=== PATIENT | male | born 1985 ===

== ENCOUNTER 2016-11-17 15:06 | Emergency (ER) | payer MEDICAID, OTHER ==
[2016-11-17 15:55] VITALS: BP 108/61; RESP 18; TEMP 98.3; O2SAT 100
[2016-11-17] MEDS ORDERED: Sodium Chloride 0.9% 1,000 ML IV STA (15:59)
[2016-11-17] MEDS ORDERED: Alum-Mag Hydrox-Simethicone Susp (30 mL) PO ONE (15:59)
--- NOTE | 2016-11-17 16:04 | ED PDOC ---
HPI: Abdomen Time Seen by Provider: 11/17/16 15:35 Chief Complaint (Nursing): Abdominal Pain Chief Complaint (Provider): Abdominal Pain History Per: Patient History/Exam Limitations: no limitations Onset/Duration Of Symptoms: Hrs Current Symptoms Are (Timing): Still Present Severity: Mild Location Of Pain/Discomfort: Epigastric Quality Of Discomfort: Burning Associated Symptoms: denies: Fever, Nausea, Loss Of Appetite Exacerbating Factors: denies: None Alleviating Factors: denies: None Last Bowel Movement: Today Additional Complaint(s): Patient is a 31 year old male who presents to ED for evaluation of epigastric pain that radiates to his chest that began upon waking this morning. Patient states similar pain in the past but normal radiates to the RUQ. Denies nausea, vomiting, back pain, diarrhea, postprandial pain or fever. Normal BM today and no medication for symptoms Past Medical History Reviewed: Historical Data, Nursing Documentation, Vital Signs Vital Signs: Last Vital Signs Temp 98.3 F 11/17/16 15:52 Pulse 64 11/17/16 15:52 Resp 18 11/17/16 15:52 BP 108/61 11/17/16 15:52 Pulse Ox 100 11/17/16 16:09 - Medical History PMH: Anxiety, Depression, Gall Bladder Disease Denies: Chronic Kidney Disease - Surgical History Surgical History: No Surg Hx - Family History Family History: States: Unknown Family Hx - Immunization History Hx Tetanus Toxoid Vaccination: No Hx Influenza Vaccination: No Hx Pneumococcal Vaccination: No - Home Medications Home Medications: Ambulatory Orders Medication Instructions Recorded Cyclobenzaprine [Flexeril] 5 mg PO Q8 PRN #15 tab 09/25/16 Dicyclomine [Bentyl] 20 mg PO BID PRN #30 tab 09/25/16 Aluminum Hydroxide/Magnesium 30 ml PO TID PRN #250 udc 10/13/16 [Maalox Plus 30 ml] Ibuprofen [Motrin] 1 tab PO TID PRN #30 tab 10/13/16 Ranitidine HCl [Zantac] 150 mg PO DAILY PRN #30 tablet 11/17/16 - Allergies Allergies/Adverse Reactions: Allergies Allergy/AdvReac Type Severity Reaction Status Date / Time No Known Allergies Allergy Verified 10/13/16 11:15 Review of Systems ROS Statement: Except As Marked, All Systems Reviewed And Found Negative Constitutional: Negative for: Fever Gastrointestinal: Positive for: Abdominal Pain. Negative for: Nausea, Vomiting Genitourinary Male: Negative for: Dysuria, Hematuria Musculoskeletal: Negative for: Back Pain Physical Exam - Reviewed Nursing Documentation Reviewed: Yes Vital Signs Reviewed: Yes - Physical Exam Appears: Positive for: Non-toxic, No Acute Distress Skin: Positive for: Normal Color, Warm Eye Exam: Positive for: Normal appearance Neck: Positive for: Normal, Painless ROM Cardiovascular/Chest: Positive for: Regular Rate, Rhythm, Chest Non Tender. Negative for: Murmur Respiratory: Positive for: Normal Breath Sounds. Negative for: Respiratory Distress Gastrointestinal/Abdominal: Positive for: Soft, Tenderness (epigastric and RUQ ( -) murphys). Negative for: Distended, Guarding, Rebound Back: Positive for: Normal Inspection. Negative for: L CVA Tenderness, R CVA Tenderness Extremity: Positive for: Normal ROM Neurologic/Psych: Positive for: Alert, Oriented - Laboratory Results Result Diagrams: 11/17/16 16:10 11/17/16 16:10 - ECG ECG: Positive for: Interpreted By Me ECG Rhythm: Positive for: Sinus Bradycardia. Negative for: ST/T Changes Rate: 53 O2 Sat by Pulse Oximetry: 100 (RA) Pulse Ox Interpretation: Normal - Radiology X-Ray: Interpreted by Me (CXR) X-Ray Interpretation: No Acute Disease - CT Scan/US Abd US Other Rad Studies (CT/US): Radiology Report Reviewed (negative) - Progress Re-evaluation Time: 18:54 (Abd remains soft and non-tender. Denies chest pain, SOB.) Condition: Re-examined, Improving,but remains with symptoms Medical Decision Making Medical Decision Making: Time: 1555 Initial Impression: Abdominal pain Initial Plan: -- CMP -- UDS -- Lipase -- CBC -- CXR -- NSF, Pepcid and Maalox -- U/A -- U/S Scribe Attestation: Documented by Bev Roberto, acting as a scribe for Chandrakant Causey PA-C. Provider Scribe Attestation: All medical record entries made by the Scribe were at my direction and personally dictated by me. I have reviewed the chart and agree that the record accurately reflects my personal performance of the history, physical exam, medical decision making, and the department course for this patient. I have also personally directed, reviewed, and agree with the discharge instructions and disposition. Disposition - Clinical Impression Clinical Impression: Dyspepsia - Patient ED Disposition Is Patient to be Admitted: No - Disposition Disposition: Routine/Home Disposition Time: 18:54 Condition: STABLE Prescriptions: Ranitidine HCl [Zantac] 150 mg PO DAILY PRN #30 tablet PRN Reason: Abdominal Pain Instructions: Gastritis (ED)
[2016-11-17] MEDS ORDERED: Alum-Mag Hydrox-Simethicone Susp (30 mL) ONE (16:11)
[2016-11-17 17:05] LABS: BASO % 0.5 % (0.0-2.0); EOS # 0.2 K/uL (0.0-0.7); LYMPH # 2.4 K/uL (1.0-4.3); LYMPH % 35.4 % (20.0-40.0); MEAN CELL VOLUME 79.1 fl (80.0-94.0); MEAN CORPUSCULAR HEMOGLOBIN 25.7 pg (27.0-31.0); MEAN CORPUSCULAR HGB CONC 32.5 g/dL (33.0-37.0); MEAN PLATELET VOLUME 7.6 fl (7.2-11.7); MONO # 0.3 K/uL (0.0-0.8); MONO % 4.9 % (0.0-10.0); NEUT # 3.8 K/uL (1.8-7.0); NEUT % 56.2 % (50.0-75.0); NRBC % 0.2 % (0.0-0.0); RED CELL DISTRIBUTION WIDTH 13.6 % (11.5-14.5); WHITE BLOOD COUNT 6.8 K/uL (4.8-10.8)
[2016-11-17 17:06] LABS: RBC URINE < 1 /hpf (0-3); URINE BILIRUBIN NEGATIVE (NEGATIVE); URINE BLOOD NEGATIVE (NEGATIVE); URINE COLOR YELLOW (YELLOW); URINE GLUCOSE (UA) NEG (Normal); URINE KETONE NEGATIVE (NEGATIVE); URINE LEUKOCYTE ESTERASE NEG Leu/uL (Negative); URINE PROTEIN NEGATIVE (NEGATIVE); URINE UROBILINOGEN 0.2-1.0 mg/dL (0.2-1.0); WBC URINE < 1 /hpf (0-5)
[2016-11-17 17:11] LABS: ALB/GLOB RATIO 1.3 (1.0-2.1); ALKALINE PHOSPHATASE 56 U/L (38-126); ALT/SGPT 29 U/L (21-72); AST/SGOT 24 U/L (17-59); BILIRUBIN,TOTAL 0.5 mg/dl (0.2-1.3); BLOOD UREA NITROGEN 8 mg/dl (9-20); CALCIUM 9.1 mg/dL (8.4-10.2); CARBON DIOXIDE 28 mmol/L (22-30); CHLORIDE 100 mmol/L (98-107); GFR AFRICAN-AMERICAN > 60; GLUCOSE,RANDOM 113 mg/dL (75-110); LIPASE 46 U/L (23-300); POTASSIUM 3.7 MMOL/L (3.6-5.0); SODIUM 137 mmol/l (132-148); TOTAL PROTEIN 7.5 G/DL (6.3-8.2)
--- NOTE | 2016-11-17 17:36 | RAD ---
HISTORY: abdominal pain COMPARISON: None available. TECHNIQUE: Chest PA and lateral FINDINGS: LUNGS: No focal consolidation. Please note that chest x-ray has limited sensitivity for the detection of pulmonary masses. PLEURA: No significant pleural effusion identified. No definite pneumothorax . CARDIOVASCULAR: The cardiomediastinal silhouette appears within normal limits of size. OSSEOUS STRUCTURES: No acute osseous abnormality identified. VISUALIZED UPPER ABDOMEN: Unremarkable. OTHER FINDINGS: None. IMPRESSION: No focal consolidation, significant pleural effusion, or definite pneumothorax identified.
[2016-11-17 18:55] VITALS: PULSE 53
--- NOTE | 2016-11-17 20:03 | US ---
EXAM: US Abdomen Complete. CLINICAL HISTORY: 31 years old, male; Pain; Abdominal pain; Generalized TECHNIQUE: Real-time ultrasound of the abdomen (complete) with image documentation. EXAM DATE/TIME: 11/17/2016 3:58 PM COMPARISON: No relevant prior studies available. FINDINGS: Gallbladder: Within normal limits in appearance, without evidence of gallstones, significant gallbladder wall thickening, or pericholecystic fluid. Reportedly negative sonographic Grimes's sign. Common bile duct: Does not appear abnormally dilated, measuring less than 6 mm in diameter. Liver: Within normal limits in appearance. Measures 16 cm in length. Normal flow seen in the main portal vein on color and Doppler imaging. Pancreas: Visualized portions appear unremarkable. Right kidney: Within normal limits in appearance. Measures 9.8 cm in length. No evidence of hydronephrosis. Left kidney: Within normal limits in appearance. Measures 10.9 cm in length. No evidence of hydronephrosis. Spleen: Within normal limits in appearance. Measures 9.5 cm in length. Aorta: Visualized portions appear unremarkable. IVC: Visualized portions appear unremarkable. IMPRESSION: No significant abnormality identified. No evidence of gallstones or cholecystitis.
== END 2016-11-17 19:02 | disposition home or self-care (01) ==
LOC: H.ER 15:06
DX: R10.13 Epigastric pain (principal)

== ENCOUNTER 2016-12-12 15:59 | Emergency (ER) | payer OTHER ==
[2016-12-12 16:15] VITALS: BP 110/59; PULSE 78; RESP 18; TEMP 98.5; O2SAT 97
[2016-12-12] MEDS ORDERED: Sodium Chloride 0.9% 1,000 ML IV STA (17:02)
--- NOTE | 2016-12-12 17:03 | ED PDOC ---
HPI: Abdomen Time Seen by Provider: 12/12/16 16:22 Chief Complaint (Nursing): Abdominal Pain Chief Complaint (Provider): Headache/ Abdominal pain History Per: Patient Additional Complaint(s): Patient present for evaluation of several weeks of right sided headache and "twitching" of his eye muscles. he has had these symptoms for many years >5, was seen by neurology and had work up done including MRI. further his last apt with neurologist was about 1 year ago for same. (-) change in vision, motor weakness, memory problems. he does not take anything for the headaches. further notes chronic abdominal pain, being evaluated by his doctor, seen in the ED for chronic abdominal pain, notes no change to the chronic abdominal pain , nausea or fluctuating bowel habits. Pt appears very anxious Past Medical History Reviewed: Nursing Documentation, Vital Signs Vital Signs: Last Vital Signs Temp 98.5 F 12/12/16 16:09 Pulse 78 12/12/16 16:09 Resp 18 12/12/16 16:09 BP 110/59 L 12/12/16 16:09 Pulse Ox 97 12/12/16 18:45 - Medical History PMH: Anxiety, Depression, Gall Bladder Disease Denies: Chronic Kidney Disease - Family History Family History: States: Unknown Family Hx - Living Arrangements Living Arrangements: With Family - Social History Current smoker - smoking cessation education provided: No Alcohol: None Drugs: Denies - Immunization History Hx Tetanus Toxoid Vaccination: No Hx Influenza Vaccination: No Hx Pneumococcal Vaccination: No - Home Medications Home Medications: Ambulatory Orders Medication Instructions Recorded Cyclobenzaprine [Flexeril] 5 mg PO Q8 PRN #15 tab 09/25/16 Dicyclomine [Bentyl] 20 mg PO BID PRN #30 tab 09/25/16 Aluminum Hydroxide/Magnesium 30 ml PO TID PRN #250 udc 10/13/16 [Maalox Plus 30 ml] Ibuprofen [Motrin] 1 tab PO TID PRN #30 tab 10/13/16 Ranitidine HCl [Zantac] 150 mg PO DAILY PRN #30 tablet 11/17/16 Methylprednisolone [Medrol Dose 4 mg PO DAILY #21 mg 12/12/16 Pack (21 tabs)] - Allergies Allergies/Adverse Reactions: Allergies Allergy/AdvReac Type Severity Reaction Status Date / Time No Known Allergies Allergy Verified 10/13/16 11:15 Review of Systems ROS Statement: Except As Marked, All Systems Reviewed And Found Negative Physical Exam - Reviewed Nursing Documentation Reviewed: Yes Vital Signs Reviewed: Yes - Physical Exam Appears: Positive for: Well, Non-toxic, No Acute Distress Head Exam: Positive for: ATRAUMATIC, NORMAL INSPECTION, NORMOCEPHALIC Skin: Positive for: Normal Color, Warm, DRY Eye Exam: Positive for: EOMI, Normal appearance, PERRL ENT: Positive for: Normal ENT Inspection Neck: Positive for: Normal, Painless ROM Cardiovascular/Chest: Positive for: Regular Rate, Rhythm Respiratory: Positive for: CNT, Normal Breath Sounds Gastrointestinal/Abdominal: Positive for: Normal Exam, Bowel Sounds, Soft Back: Positive for: Normal Inspection Extremity: Positive for: Normal ROM Neurologic/Psych: Positive for: Alert, Oriented - Laboratory Results Result Diagrams: 12/12/16 17:25 12/12/16 17:25 - ECG O2 Sat by Pulse Oximetry: 97 Medical Decision Making Medical Decision Making: Labs resulted and reviewed with Pt who reports feeling well on re-eval Stable for discharge at this time. advised to follow up with PMD, return to ED with any concerns Disposition - Clinical Impression Clinical Impression: Chronic headache disorder, Abdominal discomfort - Patient ED Disposition Is Patient to be Admitted: No - Disposition Disposition: Routine/Home Disposition Time: 18:45 Condition: STABLE Prescriptions: Methylprednisolone [Medrol Dose Pack (21 tabs)] 4 mg PO DAILY #21 mg Instructions: Migraine Headache (ED), Gas and Bloating (ED) Forms: [facility] ED School/Work Excuse - POA Present On Arrival: None
[2016-12-12 17:31] LABS: RBC URINE 2 /hpf (0-3); URINE BILIRUBIN NEGATIVE (NEGATIVE); URINE BLOOD NEGATIVE (NEGATIVE); URINE COLOR STRAW (YELLOW); URINE GLUCOSE (UA) NEG (Normal); URINE KETONE NEGATIVE (NEGATIVE); URINE LEUKOCYTE ESTERASE NEG Leu/uL (Negative); URINE PROTEIN NEGATIVE (NEGATIVE); URINE UROBILINOGEN 0.2-1.0 mg/dL (0.2-1.0); WBC URINE < 1 /hpf (0-5)
[2016-12-12 17:33] LABS: EOS # 0.1 K/uL (0.0-0.7); EOS % 1.9 % (0.0-4.0); LYMPH # 1.5 K/uL (1.0-4.3); MEAN CELL VOLUME 78.6 fl (80.0-94.0); MEAN CORPUSCULAR HEMOGLOBIN 25.8 pg (27.0-31.0); MEAN CORPUSCULAR HGB CONC 32.8 g/dL (33.0-37.0); MEAN PLATELET VOLUME 7.4 fl (7.2-11.7); MONO # 0.7 K/uL (0.0-0.8); MONO % 14.8 % (0.0-10.0); NEUT # 2.3 K/uL (1.8-7.0); NEUT % 50.3 % (50.0-75.0); NRBC % 0.2 % (0.0-0.0); RED CELL DISTRIBUTION WIDTH 13.8 % (11.5-14.5); WHITE BLOOD COUNT 4.7 K/uL (4.8-10.8)
[2016-12-12 17:46] LABS: ALB/GLOB RATIO 1.3 (1.0-2.1); ALKALINE PHOSPHATASE 60 U/L (38-126); ALT/SGPT 33 U/L (21-72); AMYLASE 76 U/L (30-110); AST/SGOT 24 U/L (17-59); BILIRUBIN,TOTAL 0.4 mg/dl (0.2-1.3); BLOOD UREA NITROGEN 9 mg/dl (9-20); CALCIUM 9.4 mg/dL (8.4-10.2); CARBON DIOXIDE 29 mmol/L (22-30); CHLORIDE 101 mmol/L (98-107); GFR AFRICAN-AMERICAN > 60; GLUCOSE,RANDOM 91 mg/dL (75-110); LIPASE 54 U/L (23-300); POTASSIUM 4.6 MMOL/L (3.6-5.0); SODIUM 143 mmol/l (132-148); TOTAL PROTEIN 7.7 G/DL (6.3-8.2)
== END 2016-12-12 19:04 | disposition home or self-care (01) ==
LOC: H.ER 15:59
DX: R51 Headache (principal); F41.9 Anxiety disorder, unspecified; G89.29 Other chronic pain

== ENCOUNTER 2017-01-20 13:45 | Emergency (ER) | payer MEDICAID, OTHER ==
[2017-01-20 13:53] VITALS: BP 103/57; PULSE 61; RESP 19; TEMP 97; O2SAT 100
--- NOTE | 2017-01-20 14:11 | ED PDOC ---
HPI: General Adult Time Seen by Provider: 01/20/17 13:51 Chief Complaint (Nursing): Headache Chief Complaint (Provider): Left facial twitching and left neck pain over a month History Per: Patient History/Exam Limitations: no limitations Onset/Duration Of Symptoms: Days Have you had recent travel within the past 21 days to any of the following countries: [place], [place], [place] or [place]?: No Current Symptoms Are (Timing): Still Present Severity: Moderate Additional Complaint(s): Pt states he has has intermittent left facial twitching for over a month. Pt states she has seen Dr. Rodriguez for this. PT states he has been also seeing a neurologist for the same for aprox 6 months. Pt states he specifically came today for left sided neck pain, which he described and sharp with sensation of liquid dripping on skin. Pt states he has gotten it before and neurologist also aware. Normal head CT on 10/18/16. Pt was seen for same in ER on 12/12/16 and told provider at that time it was gong on for >5 years and he has been seeing his current neurologist for the last year. Pt seen in [facility] [id number] for the same and at that time he told provider it was going on for 4-5 months. Past Medical History Vital Signs: Last Vital Signs Temp 97.0 F L 01/20/17 13:51 Pulse 61 01/20/17 13:51 Resp 19 01/20/17 13:51 BP 103/57 L 01/20/17 13:51 Pulse Ox 100 01/20/17 14:17 - Medical History PMH: Anxiety, Depression, Gall Bladder Disease Denies: Chronic Kidney Disease - Family History Family History: Denies: [place] - Immunization History Hx Tetanus Toxoid Vaccination: No Hx Influenza Vaccination: No Hx Pneumococcal Vaccination: No - Home Medications Home Medications: Ambulatory Orders Medication Instructions Recorded Famotidine [Pepcid] 20 mg PO BID #30 tab 01/06/17 Naproxen [Naprosyn] 1 tab PO BID PRN #20 tab 01/06/17 - Allergies Allergies/Adverse Reactions: Allergies Allergy/AdvReac Type Severity Reaction Status Date / Time DUST Allergy Uncoded 01/06/17 13:58 SEASONAL Allergy Uncoded 01/06/17 13:58 - ECG O2 Sat by Pulse Oximetry: 100 Medical Decision Making Medical Decision Making: Discussed continued follow-up with neurologist for chronic symptoms. Pt than becomes tearful and asks to speak with a psychiatrist. Pt states not knowing what is wrong is making his depressed. Pt states he is on the boarder of wanting to hurt himself. Crisis evaluation completed. Disposition - Clinical Impression Clinical Impression: Headache, Paresthesia - Patient ED Disposition Is Patient to be Admitted: No Counseled Patient/Family Regarding: Diagnosis, Need For Followup - Disposition Referrals: [facility] [Outside] Disposition: Routine/Home Disposition Time: 15:42 Condition: GOOD Instructions: Paresthesia (ED)
== END 2017-01-20 17:00 | disposition home or self-care (01) ==
LOC: H.ER 13:45
DX: R20.9 Unspecified disturbances of skin sensation (principal); R51 Headache; F41.9 Anxiety disorder, unspecified; F32.9 Major depressive disorder, single episode, unspecified

== ENCOUNTER 2017-04-06 13:25 | Emergency (ER) | payer OTHER ==
[2017-04-06 13:32] VITALS: BP 104/82; PULSE 73; RESP 16; TEMP 97; O2SAT 97
--- NOTE | 2017-04-06 13:43 | ED PDOC ---
HPI: Headache Time Seen by Provider: 04/06/17 13:34 Chief Complaint (Nursing): Headache Chief Complaint (Provider): Headaches History Per: Patient History/Exam Limitations: no limitations Onset/Duration Of Symptoms: Intermittent Episodes Current Symptoms Are (Timing): Still Present Severity: Moderate Quality: "Pain" Additional Complaint(s): Lasha Sarabia is a 32 y/o male presenting to the ER on 04/06/2017 with complaints of intermittent headaches and "muscle twitching to scalp" that has been ongoing for months. Patient has been evaluated in this ED for similar complaints in the past. He reports he sees a neurologist, Dr. Horan, who sent him for an MRI 2 weeks ago. Patient states he follows up with Dr. Horan in May but he came to ED today as he is having an episode of scalp twitching. He additionally says he was prescribed Cymbalta by his neurologist, but was advised not to take it by his primary doctor. Patient takes Advil for his headaches with no relief. Patient was recently diagnosed with a TMJ and was told this is contributing to his headaches as well. Patient denies any dizziness, vision changes, nausea or vomiting or fever or chills upon arrival today. He complains more so of muscle spasm to scalp at present vs. actual pain. No associated facial numbness or extremity weakness. Past Medical History Reviewed: Historical Data, Nursing Documentation, Vital Signs Vital Signs: Last Vital Signs Temp 97.0 F L 04/06/17 13:28 Pulse 73 04/06/17 13:28 Resp 16 04/06/17 13:28 BP 104/82 04/06/17 13:28 Pulse Ox 97 04/06/17 13:28 - Medical History PMH: Anxiety, Depression, Chronic Pain (chronic headaches) - Surgical History Surgical History: No Surg Hx - Family History Family History: States: No Known Family Hx - Living Arrangements Living Arrangements: With Family - Social History Current smoker - smoking cessation education provided: No Alcohol: Occasional Drugs: Denies - Home Medications Home Medications: Ambulatory Orders Medication Instructions Recorded Famotidine [Pepcid] 20 mg PO BID #30 tab 01/06/17 Naproxen [Naprosyn] 1 tab PO BID PRN #20 tab 01/06/17 Cyclobenzaprine [Cyclobenzaprine 10 mg PO TID PRN #20 tab 04/06/17 HCl] - Allergies Allergies/Adverse Reactions: Allergies Allergy/AdvReac Type Severity Reaction Status Date / Time DUST Allergy Uncoded 01/06/17 13:58 SEASONAL Allergy Uncoded 01/06/17 13:58 Review of Systems ROS Statement: Except As Marked, All Systems Reviewed And Found Negative Constitutional: Negative for: Fever, Chills, Weakness Gastrointestinal: Negative for: Nausea, Vomiting Neurological: Positive for: Headache (with muscle twitching to scalp). Negative for: Weakness, Numbness, Dizziness Physical Exam - Reviewed Nursing Documentation Reviewed: Yes Vital Signs Reviewed: Yes - Physical Exam Appears: Positive for: Well, Non-toxic, No Acute Distress Head Exam: Positive for: ATRAUMATIC, NORMAL INSPECTION, NORMOCEPHALIC Skin: Positive for: Normal Color. Negative for: Rash Eye Exam: Positive for: Normal appearance, EOMI, PERRL ENT: Positive for: Normal ENT Inspection Neck: Positive for: Normal, Painless ROM, Supple. Negative for: Pain On Movement Of Neck Cardiovascular/Chest: Positive for: Regular Rate, Rhythm Respiratory: Positive for: Normal Breath Sounds Extremity: Positive for: Normal ROM. Negative for: Deformity, Swelling Neurologic/Psych: Positive for: Alert, weatherization administrator II-XII (grossly intact), Oriented, Mood/Affect (flat), Gait (steady). Negative for: Motor/Sensory Deficits, Aphasia, Facial Droop - ECG O2 Sat by Pulse Oximetry: 97 Pulse Ox Interpretation: Normal Medical Decision Making Medical Decision Makin:34 Initial Impression- 32 y/o male with chronic headaches. No neuro deficits noted on exam. Previous records reviewed, patient has been seen in ED for same in the past. He has had CT and MRI of brain in recent past. Patient is also under the care of a neurologist. Patient is more concerned about persistent muscle twitching of scalp. Advised rx flexeril to treat spasms. Patient agreed with plan. Dose declined in ED but rx was provided. Patient was instructed to follow up with PMD or neurologist. Documented by Anselmo Lan, acting as a scribe for Meera Chi PA-C All medical record entries made by the Scribe were at my direction and personally dictated by me. I have reviewed the chart and agree that the record accurately reflects my personal performance of the history, physical exam, medical decision making, and the department course for this patient. I have also personally directed, reviewed, and agree with the discharge instructions and disposition. Disposition - Clinical Impression Clinical Impression: Muscle spasm, Chronic headache disorder - Patient ED Disposition Is Patient to be Admitted: No Counseled Patient/Family Regarding: Diagnosis, Need For Followup, Rx Given - Disposition Referrals: Zak Horan MD [Medical Doctor] - Disposition: Routine/Home Disposition Time: 13:48 Condition: STABLE Additional Instructions: Take rx meds as directed. Follow up with neurologist. Prescriptions: Cyclobenzaprine [Cyclobenzaprine HCl] 10 mg PO TID PRN #20 tab PRN Reason: Muscle Spasm Instructions: General Headache (ED), Muscle Spasm (ED) Forms: [employer] (Greenlandic)
== END 2017-04-06 13:56 | disposition home or self-care (01) ==
LOC: H.ER 13:25
DX: R51 Headache (principal); G89.29 Other chronic pain; F41.9 Anxiety disorder, unspecified

== ENCOUNTER 2017-06-25 19:16 | Emergency (ER) | payer OTHER ==
[2017-06-25 19:23] VITALS: TEMP 98.2; O2SAT 100
[2017-06-25 20:05] LABS: BASO # 0.1 K/uL (0.0-0.2); BASO % 0.7 % (0.0-2.0); EOS # 0.2 K/uL (0.0-0.7); EOS % 2.9 % (0.0-4.0); HEMATOCRIT 41.6 % (35.0-51.0); LYMPH # 2.7 K/uL (1.0-4.3); LYMPH % 39.4 % (20.0-40.0); MEAN CELL VOLUME 78.7 fl (80.0-94.0); MEAN CORPUSCULAR HEMOGLOBIN 25.9 pg (27.0-31.0); MEAN CORPUSCULAR HGB CONC 32.9 g/dL (33.0-37.0); MONO # 0.5 K/uL (0.0-0.8); MONO % 7.4 % (0.0-10.0); NEUT # 3.4 K/uL (1.8-7.0); NEUT % 49.6 % (50.0-75.0); NRBC % 0.1 % (0.0-0.0); WHITE BLOOD COUNT 6.8 K/uL (4.8-10.8)
--- NOTE | 2017-06-25 20:05 | ED PDOC ---
HPI: Chest Pain Time Seen by Provider: 06/25/17 19:31 Chief Complaint (Nursing): Chest Pain Chief Complaint (Provider): Chest Pain History Per: Patient History/Exam Limitations: no limitations Onset/Duration Of Symptoms: Hrs (x2) Current Symptoms Are (Timing): Still Present Additional Complaint(s): Lasha Sarabia is a 32 year old male with a history of IBS and neuropathy that presents to the ED with a chief complaint of left-sided chest pain that began two hours prior to arrival. Patient reports that the pain was dull at onset, and started while at rest, and worsened over the course of two hours with an associated numb feeling in his left chest wall as well. He denies any shortness of breath or left arm symptoms, but does admit to drinking some alcohol tonight while cooking. PMD: Dr. Abarca Past Medical History Reviewed: Historical Data, Nursing Documentation, Vital Signs Vital Signs: Last Vital Signs Temp 98.2 F 06/25/17 19:21 Pulse 64 06/25/17 19:21 Resp 20 06/25/17 19:21 BP 118/69 06/25/17 19:21 Pulse Ox 100 06/25/17 20:08 - Medical History PMH: Anxiety, Depression, Gall Bladder Disease, Chronic Pain (chronic headaches) Denies: Diabetes, Hepatitis, HIV, HTN, Chronic Kidney Disease, Seizures, Sexually Transmitted Disease Other PMH: IBS, Neuropathy - Family History Family History: States: No Known Family Hx Denies: [place] - Social History Current smoker - smoking cessation education provided: Yes Alcohol: Social Drugs: Denies - Immunization History Hx Tetanus Toxoid Vaccination: No Hx Influenza Vaccination: No Hx Pneumococcal Vaccination: No - Home Medications Home Medications: Ambulatory Orders Medication Instructions Recorded Famotidine [Pepcid] 20 mg PO BID #30 tab 01/06/17 Naproxen [Naprosyn] 1 tab PO BID PRN #20 tab 01/06/17 Cyclobenzaprine [Cyclobenzaprine 10 mg PO TID PRN #20 tab 04/06/17 HCl] - Allergies Allergies/Adverse Reactions: Allergies Allergy/AdvReac Type Severity Reaction Status Date / Time DUST Allergy Uncoded 01/06/17 13:58 SEASONAL Allergy Uncoded 01/06/17 13:58 Review of Systems ROS Statement: Except As Marked, All Systems Reviewed And Found Negative Cardiovascular: Positive for: Chest Pain (left-sided) Respiratory: Negative for: Shortness of Breath Musculoskeletal: Negative for: Arm Pain (denies left arm pain) Physical Exam - Reviewed Nursing Documentation Reviewed: Yes Vital Signs Reviewed: Yes - Physical Exam Appears: Positive for: Non-toxic, No Acute Distress Head Exam: Positive for: ATRAUMATIC, NORMOCEPHALIC Skin: Positive for: Warm, Dry Eye Exam: Positive for: EOMI, PERRL ENT: Negative for: Pharyngeal Erythema, Tonsillar Exudate Neck: Positive for: Painless ROM, Supple Cardiovascular/Chest: Positive for: Regular Rate, Rhythm, Other (tenderness to palpation LEFT upper chest wall no crepitus). Negative for: Murmur Respiratory: Positive for: Normal Breath Sounds. Negative for: Rales, Rhonchi, Wheezing, Respiratory Distress Gastrointestinal/Abdominal: Positive for: Soft. Negative for: Tenderness Back: Positive for: Normal Inspection. Negative for: Decreased ROM Extremity: Positive for: Normal ROM. Negative for: Deformity Lymphatic: Negative for: Adenopathy Neurologic/Psych: Positive for: Alert. Negative for: Motor/Sensory Deficits - Laboratory Results Result Diagrams: 06/25/17 19:55 06/25/17 19:55 - ECG O2 Sat by Pulse Oximetry: 100 (RA) Pulse Ox Interpretation: Normal - Progress Condition: Improved Medical Decision Making Medical Decision Making: Impression: Left-Sided Chest Pain, ddx include Costochondritis vs. Muscle Spasm vs. Chest Wall Strain vs. Electrolyte Abnormality Plan: * Chest X-Ray * CMP * CBC * TSH * Magnesium * Phosphorous * Reevaluation * Mild hypokalemia CXR no inf/effusions. DW pt findings and plan of care. Scribe Attestation: Documented by Leonora Godfrey, acting as a scribe for Meera Tovar MD. Provider Scribe Attestation: All medical record entries made by the Scribe were at my direction and personally dictated by me. I have reviewed the chart and agree that the record accurately reflects my personal performance of the history, physical exam, medical decision making, and the department course for this patient. I have also personally directed, reviewed, and agree with the discharge instructions and disposition. Disposition - Clinical Impression Clinical Impression: Atypical chest pain Counseled Patient/Family Regarding: Studies Performed, Diagnosis, Need For Followup - Disposition Referrals: Yoav Abarca MD [Family Provider] - 06/26/17 Disposition: Routine/Home Disposition Time: 21:00 Condition: IMPROVED Instructions: Chest Wall Pain (ED), Hypokalemia (ED)
[2017-06-25 20:14] LABS: ALB/GLOB RATIO 1.6 (1.0-2.1); ALKALINE PHOSPHATASE 41 U/L (38-126); ALT/SGPT 35 U/L (21-72); AST/SGOT 21 U/L (17-59); BILIRUBIN,TOTAL 0.3 mg/dl (0.2-1.3); BLOOD UREA NITROGEN 8 mg/dl (9-20); CALCIUM 9.3 mg/dL (8.4-10.2); CARBON DIOXIDE 27 mmol/L (22-30); CHLORIDE 101 mmol/L (98-107); GFR AFRICAN-AMERICAN > 60; GLUCOSE,RANDOM 113 mg/dL (75-110); PHOSPHOROUS 3.1 mg/dl (2.5-4.5); POTASSIUM 3.4 MMOL/L (3.6-5.0); SODIUM 141 mmol/l (132-148)
[2017-06-25 20:43] LABS: THYROID STIMULATING HORMONE 0.92 mIU/ML (0.46-4.68)
[2017-06-25 21:57] VITALS: BP 115/80; PULSE 82; RESP 16
--- NOTE | 2017-06-26 11:51 | RAD ---
HISTORY: chest pain COMPARISON: 11/17/2016 TECHNIQUE: Chest PA and lateral FINDINGS: LUNGS: No active pulmonary disease. PLEURA: No significant pleural effusion identified. No pneumothorax apparent. CARDIOVASCULAR: Normal. OSSEOUS STRUCTURES: No significant abnormalities. VISUALIZED UPPER ABDOMEN: Normal. OTHER FINDINGS: None. IMPRESSION: No active disease.
== END 2017-06-25 21:57 | disposition home or self-care (01) ==
LOC: H.ER 19:16
DX: R07.89 Other chest pain (principal); E87.6 Hypokalemia; F32.9 Major depressive disorder, single episode, unspecified; F41.9 Anxiety disorder, unspecified; G89.29 Other chronic pain; K58.9 Irritable bowel syndrome, unspecified

== ENCOUNTER 2019-01-26 13:36 | Emergency (ER) | payer SELFPAY ==
[2019-01-26 13:49] VITALS: TEMP 98.5
[2019-01-26 13:57] VITALS: O2SAT 99
[2019-01-26 15:10] LABS: BASO % 0.5 % (0.0-2.0); EOS # 0.1 K/uL (0.0-0.7); EOS % 1.8 % (0.0-4.0); HEMOGLOBIN 14.4 g/dL (12.0-18.0); LYMPH # 2.1 K/uL (1.0-4.3); LYMPH % 26.3 % (20.0-40.0); MEAN CELL VOLUME 79.4 fl (80.0-94.0); MEAN CORPUSCULAR HEMOGLOBIN 25.8 pg (27.0-31.0); MEAN CORPUSCULAR HGB CONC 32.5 g/dL (33.0-37.0); MONO # 0.4 K/uL (0.0-0.8); MONO % 5.4 % (0.0-10.0); NEUT # 5.3 K/uL (1.8-7.0); RBC 5.58 Mil/uL (4.40-5.90); RED CELL DISTRIBUTION WIDTH 13.3 % (11.5-14.5)
[2019-01-26 15:28] LABS: ALB/GLOB RATIO 1.6 (1.0-2.1); ALBUMIN 4.7 g/dL (3.5-5.0); ALT/SGPT 27 U/L (21-72); AST/SGOT 22 U/L (17-59); BLOOD UREA NITROGEN 8 mg/dl (9-20); CALCIUM 9.1 mg/dL (8.4-10.2); GFR NON-AFRICAN AMERICAN > 60
--- NOTE | 2019-01-26 15:33 | ED PDOC ---
HPI: General Adult Time Seen by Provider: 01/26/19 13:57 Chief Complaint (Nursing): Chest Pain History Per: Patient Additional Complaint(s): Pt. states 1.5 weeks ago he was walking when he suddenly developed a "snapping" sensation on the R side of his head which caused him to be imbalanced and felt as if he was going to past out. States he stayed conscious and symptoms eventually resolved. The following day he developed a headache and has since had the "snapping sensation" intermittently. Also reports feeling a "wet sensation" going down from the R side of his head and into his chest. Further reports having intermittent palpitations with mid-sternal chest pain. Pt. reports he's had "snapping" sensation in the past and was told by his PMD that it was likely due to anxiety but headache is a new symptoms. Denies head injury, fever, LOC, family hx of SAH, SOB, hemoptysis, leg pain or swelling, trauma, weakness, numbness, tingling. Past Medical History Reviewed: Historical Data, Nursing Documentation, Vital Signs Vital Signs: Last Vital Signs Temp 98.5 F 01/26/19 13:45 Pulse 75 01/26/19 13:56 Resp 14 01/26/19 13:56 BP 125/72 01/26/19 13:56 Pulse Ox 99 01/26/19 13:56 Primary Care Provider: Yoav Abarca - Medical History PMH: Anxiety, Depression, Gall Bladder Disease, Chronic Pain (chronic headaches) Denies: Diabetes, Hepatitis, HIV, HTN, Chronic Kidney Disease, Seizures, Sexually Transmitted Disease - Family History Family History: Denies: Stroke, CA, CAD, Hypertension - Social History Drugs: Denies - Immunization History Hx Tetanus Toxoid Vaccination: No Hx Influenza Vaccination: No Hx Pneumococcal Vaccination: No - Home Medications Home Medications: Ambulatory Orders Medication Instructions Recorded Famotidine [Pepcid] 20 mg PO BID #30 tab 01/06/17 Naproxen [Naprosyn] 1 tab PO BID PRN #20 tab 01/06/17 Cyclobenzaprine [Cyclobenzaprine 10 mg PO TID PRN #20 tab 04/06/17 HCl] Metoclopramide [Reglan] 10 mg PO TID PRN #10 tab 01/26/19 - Allergies Allergies/Adverse Reactions: Allergies Allergy/AdvReac Type Severity Reaction Status Date / Time DUST Allergy Uncoded 01/06/17 13:58 SEASONAL Allergy Uncoded 01/06/17 13:58 Review of Systems ROS Statement: Except As Marked, All Systems Reviewed And Found Negative Musculoskeletal: Positive for: Back Pain Physical Exam - Physical Exam Appears: Positive for: Well, Non-toxic, No Acute Distress Head Exam: Positive for: ATRAUMATIC, NORMAL INSPECTION, NORMOCEPHALIC Skin: Positive for: Normal Color, Warm. Negative for: Rash Eye Exam: Positive for: EOMI, Normal appearance, PERRL ENT: Positive for: Normal ENT Inspection Neck: Positive for: Normal, Painless ROM, Supple Cardiovascular/Chest: Positive for: Regular Rate, Rhythm. Negative for: Murmur, Tachycardia Respiratory: Positive for: Normal Breath Sounds. Negative for: Respiratory Distress Gastrointestinal/Abdominal: Positive for: Soft. Negative for: Tenderness Back: Positive for: Normal Inspection. Negative for: L CVA Tenderness, R CVA Tenderness Neurological/Psych: Positive for: Awake, Alert, Symmetric/Intact Strength, Oriented (x3) - Laboratory Results Result Diagrams: 01/26/19 15:04 01/26/19 15:04 - ECG ECG: Positive for: Interpreted By Me ECG Rhythm: Positive for: Sinus Rhythm. Negative for: ST/T Changes Rate: 61 O2 Sat by Pulse Oximetry: 99 Disposition - Clinical Impression Clinical Impression: Headache, Chest pain - Patient ED Disposition Is Patient to be Admitted: No - Disposition Referrals: Jairo Sawyer MD [Medical Doctor] - [facility] [place] [Outside] Disposition: Routine/Home Disposition Time: 17:16 Condition: IMPROVED Additional Instructions: FOLLOW UP WITH DR. SAWYER FOR FURTHER EVALUATION RETURN TO ED IMMEDIATELY IF SYMPTOMS WORSEN Prescriptions: Metoclopramide [Reglan] 10 mg PO TID PRN #10 tab PRN Reason: nausea or headache Instructions: Headache, Adult (DC), Chest Pain (DC) Forms: [employer] (Armenian)
[2019-01-26 15:34] VITALS: PULSE 61
--- NOTE | 2019-01-26 15:35 | RAD ---
Date of service: 01/26/2019 HISTORY: Chest pain COMPARISON: Comparison made with chest radiograph 06/25/2017. TECHNIQUE: 1 view obtained. FINDINGS: LUNGS: No active pulmonary disease. PLEURA: No significant pleural effusion identified, no pneumothorax apparent. CARDIOVASCULAR: No aortic atherosclerotic calcification present. Normal cardiac size. No pulmonary vascular congestion. OSSEOUS STRUCTURES: No significant abnormalities. VISUALIZED UPPER ABDOMEN: Normal. OTHER FINDINGS: None. IMPRESSION: No active disease.
[2019-01-26 16:06] LABS: URINE BILIRUBIN NEGATIVE (NEGATIVE); URINE BLOOD NEGATIVE (NEGATIVE); URINE CLARITY CLEAR (Clear); URINE COLOR STRAW (YELLOW); URINE GLUCOSE (UA) NEG (NEGATIVE); URINE LEUKOCYTE ESTERASE NEG Leu/uL (Negative); URINE PROTEIN NEGATIVE (NEGATIVE); URINE UROBILINOGEN 0.2-1.0 mg/dL (0.2-1.0)
--- NOTE | 2019-01-26 16:12 | CT ---
Date of service: 01/26/2019 PROCEDURE: CT HEAD WITHOUT CONTRAST. HISTORY: headache COMPARISON: 10/18/2016 TECHNIQUE: Axial computed tomography images were obtained through the head/brain without intravenous contrast. Radiation dose: Total exam DLP = 789.64 mGy-cm. This CT exam was performed using one or more of the following dose reduction techniques: Automated exposure control, adjustment of the mA and/or kV according to patient size, and/or use of iterative reconstruction technique. FINDINGS: HEMORRHAGE: No intracranial hemorrhage. BRAIN: No mass effect or edema. No atrophy or chronic microvascular ischemic changes. VENTRICLES: Unremarkable. No hydrocephalus. CALVARIUM: Unremarkable. PARANASAL SINUSES: Unremarkable as visualized. No significant inflammatory changes. MASTOID AIR CELLS: Unremarkable as visualized. No inflammatory changes. OTHER FINDINGS: None. IMPRESSION: Normal CT of the Head. No interval pathology noted.
--- NOTE | 2019-01-26 16:20 | CARD ---
APPROVED REPORT Date of service: 01/26/2019 EKG Measurement Heart [id number] ME [id number] <Conclusion> Normal sinus rhythm Normal Electrocardiogram
[2019-01-26 18:02] VITALS: BP 130/60; RESP 16
== END 2019-01-26 17:25 | disposition home or self-care (01) ==
LOC: H.ER 13:36
DX: R07.89 Other chest pain (principal); R51 Headache